=== PATIENT | female | born 1935 | race Caucasian/White ===

== ENCOUNTER → 2021-02-01 17:15 | Outpatient (BNVA) | payer MEDICARE, MEDICAID, SELFPAY | PROVIDERS: Family Provider Internal Medicine; Visit Provider Family Medicine | DX: E78.2 Mixed hyperlipidemia (principal); F32.1 Major depressive disorder, single episode, moderate; I10 Essential (primary) hypertension | CPT/HCPCS: 80053; 80061; 84443; 85025 ==

== ENCOUNTER → 2021-09-06 17:09 | Outpatient (BNVA) | payer MEDICARE, MEDICAID, SELFPAY | PROVIDERS: Family Provider Internal Medicine; Visit Provider Family Medicine | DX: N39.0 Urinary tract infection, site not specified (principal); I10 Essential (primary) hypertension; F32.1 Major depressive disorder, single episode, moderate; E78.2 Mixed hyperlipidemia | CPT/HCPCS: 80053; 80061; 81003; 83735; 84443; 85025 ==

== ENCOUNTER → 2021-09-29 10:30 | Outpatient (BNVA) | payer MEDICARE, MEDICAID, SELFPAY | PROVIDERS: Family Provider Internal Medicine; Visit Provider Nurse Practitioner Family | DX: N39.0 Urinary tract infection, site not specified (principal) | CPT/HCPCS: 81003; 87077; 87086; 87184 ==

== ENCOUNTER → 2021-11-22 14:17 | Outpatient (BNVA) | payer MEDICARE, MEDICAID, SELFPAY | PROVIDERS: Family Provider Internal Medicine; PCP Family Medicine; Visit Provider Family Medicine | DX: N39.0 Urinary tract infection, site not specified (principal); I10 Essential (primary) hypertension; E78.2 Mixed hyperlipidemia; F32.1 Major depressive disorder, single episode, moderate | CPT/HCPCS: 80053; 80061; 81003; 85025; 87086; 87184 ==

== ENCOUNTER → 2022-03-22 12:51 | Outpatient (BNVA) | payer MEDICARE, MEDICAID, SELFPAY | PROVIDERS: Family Provider Internal Medicine; PCP Family Medicine; Visit Provider Family Medicine | DX: I10 Essential (primary) hypertension (principal); E78.2 Mixed hyperlipidemia; F32.1 Major depressive disorder, single episode, moderate; N39.0 Urinary tract infection, site not specified; E78.5 Hyperlipidemia, unspecified | CPT/HCPCS: 80053; 80061; 81003; 85025; 87086 ==

== ENCOUNTER → 2022-07-14 17:32 | Outpatient (BNVA) | payer MEDICARE, MEDICAID, SELFPAY | PROVIDERS: Family Provider Internal Medicine; PCP Family Medicine; Visit Provider Family Medicine | DX: I10 Essential (primary) hypertension (principal); E78.2 Mixed hyperlipidemia; F32.1 Major depressive disorder, single episode, moderate; B37.9 Candidiasis, unspecified; E78.5 Hyperlipidemia, unspecified | CPT/HCPCS: 80053; 80061; 84443; 85025 ==

== ENCOUNTER → 2022-08-18 15:52 | Outpatient (BNVA) | payer MEDICARE, MEDICAID, SELFPAY | PROVIDERS: Family Provider Internal Medicine; PCP Family Medicine; Visit Provider Family Medicine | DX: N39.0 Urinary tract infection, site not specified (principal) | CPT/HCPCS: 81000 ==

== ENCOUNTER → 2023-01-20 12:01 | Outpatient (BNVA) | payer MEDICARE, MEDICAID, SELFPAY | PROVIDERS: Family Provider Internal Medicine; PCP Family Medicine; Visit Provider Family Medicine | DX: F32.1 Major depressive disorder, single episode, moderate (principal); G47.09 Other insomnia; E78.2 Mixed hyperlipidemia; I10 Essential (primary) hypertension | CPT/HCPCS: 80053; 80061; 84443; 85025 ==

== ENCOUNTER → 2023-05-31 11:00 | Outpatient (BNVA) | payer MEDICARE, MEDICAID, SELFPAY | PROVIDERS: Family Provider Internal Medicine; PCP Family Medicine; Visit Provider Family Medicine | DX: E78.5 Hyperlipidemia, unspecified (principal); I10 Essential (primary) hypertension; G47.00 Insomnia, unspecified; F32.9 Major depressive disorder, single episode, unspecified | CPT/HCPCS: 80053; 80061; 84443; 85025 ==

== ENCOUNTER 2023-08-16 06:00 | Outpatient (RCR) | payer MEDICARE, MEDICAID, SELFPAY | END 2023-09-12 23:59 | disposition home or self-care (01) | LOC: TPT 06:00 | PROVIDERS: PCP Family Medicine; Visit Provider Family Medicine | DX: M54.30 Sciatica, unspecified side (principal) | CPT/HCPCS: 97110; 97162 ==

== ENCOUNTER → 2023-08-23 14:30 | Outpatient (BNVA) | payer MEDICARE, MEDICAID, SELFPAY | PROVIDERS: PCP Family Medicine; Visit Provider Family Medicine | DX: N39.0 Urinary tract infection, site not specified (principal) | CPT/HCPCS: 81000 ==

== ENCOUNTER 2023-09-13 06:00 | Outpatient (RCR) | payer MEDICARE, MEDICAID, SELFPAY | END 2023-10-12 23:59 | disposition home or self-care (01) | LOC: TPT 06:00 | PROVIDERS: PCP Family Medicine; Visit Provider Family Medicine | DX: M54.30 Sciatica, unspecified side (principal) | CPT/HCPCS: 97110 ==

== ENCOUNTER 2024-01-09 10:45 | Emergency (ER) | payer MEDICARE, MEDICAID, SELFPAY ==
[2024-01-09 10:44] VITALS: BMI 27.2
[2024-01-09 10:48] VITALS: BP 116/68; PULSE 83; RESP 16; TEMP 37.1; O2SAT 92
--- NOTE | 2024-01-09 11:01 | ED_ITS ---
HPI - Nausea/Vomiting/Diarrhea 2 General: Chief complaint: Nausea/Vomiting/Diarrhea Stated complaint: N/V Source: patient and EMS Mode of arrival: EMS Limitations: no limitations History of Present Illness: Patient is an 88-year-old female presents to ED today with complaint of nausea and vomiting over the past 2 days. Patient states she is vomiting multiple times daily. Symptoms began after starting doxepin for sleep. She states she is not eating or drinking x 2 days. Patient states she has never had any abdominal pain or cramping. She is reporting normal bowel movements although states she has not ate much so has not stooled as often. She is not running fevers. Patient states she was given Zofran in route via EMS and upon arrival states all of her nausea has subsided. Denies sick contacts. Has noticed some shortness of breath when she gets up and walks around. MD elicited complaint: nausea and vomiting Onset (ago): day(s) Associated nausea: Yes Associated abdominal pain: No Location of pain: None Severity: moderate Exacerbating factors: eating Relieving factors: none Associated symtoms: Reports no associated symptoms and nausea; Denies chest pain, dizziness, dysuria, fatigue, headache(s) or malaise Review of Systems 2 Const: Denies: fever(s), chills, body aches, fatigue or malaise Card: Denies: chest pain Resp: Denies: dyspnea GI: Reports: nausea and vomiting; Denies: abdominal pain, hematemesis, diarrhea, constipation, GI cramping, change in bowel habits, hematochezia or melena : Denies: flank pain, difficulty voiding, dysuria, urinary frequency, urinary urgency or urinary hesitancy Musc: Denies: neck pain, back pain, extremity pain, extremity swelling, joint pain or joint swelling Skin/Breast: Denies: rash Neuro: Denies: headache(s), numbness in extremities, weakness in extremities, sensory changes or dizziness PFSH ED 2 PFSH: Medical History Hypertension Hyperlipidemia Depression Surgical History History of partial hysterectomy Social History Smoking and tobacco/nicotine status: never used tobacco/nicotine Alcohol intake: never Substance/Drug Use: never Household members: spouse Marital status: Current occupational status: retired Physical Exam 2 Const: COMMON NORMALS: no acute distress, average body habitus, patient oriented x3, no limitations, healthy appearing, alert and well nourished Eye: COMMON NORMALS: no scleral icterus Resp: COMMON NORMALS: normal respiratory effort and clear to auscultation bilaterally AUSCULTATION: clear to auscultation bilaterally Cardio: COMMON NORMALS: regular rate and regular rhythm RATE: regular rate RHYTHM: regular rhythm GI: COMMON NORMALS: Normal to inspection, nondistended, normoactive bowel sounds present, Soft to palpation, non-tender, No hepatosplenomegaly present and no masses PALPATION: Yes Soft to palpation and Yes No hepatosplenomegaly present : COMMON NORMALS: Yes no CVA tenderness BLADDER/KIDNEY EXAM: Yes no CVA tenderness Back/Pelvis: COMMON NORMALS: no CVA tenderness and thoracic and lumbar spine normal to inspection Extremity: GENERAL: Yes normal exam except as noted Neuro: [place] COMA SCALE: document GCS findings [place] coma scale eye opening: Spontaneous [place] coma scale verbal response: Orientated [place] coma scale motor response: Obey commands [place] coma scale total score: 15 COMMON NORMALS: patient oriented x3 SENSORIUM/ORIENTATION: Yes alert Skin: COMMON NORMALS: no rashes or lesions noted GENERAL SKIN EXAM: no rashes or lesions noted Course 2 Vital Signs: Vital signs: Vital Signs Temperature 98.8 F 01/09/24 10:48 Pulse Rate 86 01/09/24 13:00 Respiratory Rate 16 01/09/24 10:48 Blood Pressure 93/53 01/09/24 13:00 Pulse Oximetry 94 01/09/24 13:00 Oxygen Delivery Me thod Room Air 01/09/24 10:48 MDM - Nausea/Vomiting/Diarrhea Medical Decision Making Patient is an 88-year-old female here for nausea and vomiting over the past 2 days. She states symptoms started after starting a new sleeping medication, doxepin. This does have a common reaction of nausea and vomiting. Recommend she discontinue this to see if nausea or vomiting improves. She did have a complaint of feeling short of breath when she gets up and walks around. CXR showing a left lower lobe infiltrate that could represent pneumonia or chronic change. No comparison studies were available. Will go ahead and treat with Levaquin. Remainder of her blood work is nonactionable. UA somewhat contaminated. She has no UTI-like symptoms. Return ED precautions given. Differential Diagnosis Likely food poisoning, gastroenteritis, drug-induced nausea and vomiting and dehydration Medical Records I reviewed the patient's medical records. Lab Data I reviewed the patient's lab results. 01/09/24 11:26 01/09/24 11:26 Laboratory Results WBC 12.56 10^3/uL (3.29-11.43) H 01/09/24 11:26 RBC 5.12 10^6/uL (3.85-5.65) 01/09/24 11:26 Hgb 13.80 g/dL (11.27-16.99) 01/09/24 11: Hct 44.6 % (36-47) 01/09/24 11: MCV 87.1 fl (85-98) 01/09/24 11: MCH 27.0 pg (27-33) 01/09/24 11: MCHC 30.9 g/dL (30-55) 01/09/24 11: RDW 13.8 % (12.1-15.1) 01/09/24 11: Plt Count 218 10^3/cmm (157-399) 01/09/24 11: MPV 9.7 fL (7.4-10.4) 01/09/24 11: Neut % (Auto) 95.2 % 01/09/24 11: Lymph % (Auto) 1.3 % 01/09/24 11: [place] % (Auto) 2.2 % 01/09/24 11: Eos % (Auto) 0.6 % 01/09/24 11: Baso % (Auto) 0.2 % 01/09/24 11: Neut # (Auto) 11.96 10^3/uL (1.8-7.7) H 01/09/24 11: Lymph # (Auto) 0.2 10^3/uL (0.8-4.8) L 01/09/24 11: [place] # (Auto) 0.3 10^3/uL (0.2-0.9) 01/09/24 11:26 Eos # (Auto) 0.1 10^3/uL (0.0-0.8) 01/09/24 11:26 Baso # (Auto) 0.0 10^3/uL (0.0-0.1) 01/09/24 11:26 Nucleated RBC % (auto) 0 % 01/09/24 11:26 Nucleated RBCs # 0.0 /100WBC 01/09/24 11:26 Sodium 142 mmol/L (136-145) 01/09/24 11:26 Potassium 4.2 mmol/L (3.5-5.1) 01/09/24 11:26 Chloride 101 mmol/L (98-107) 01/09/24 11:26 Carbon Dioxide 30 mmol/L (22-29) H 01/09/24 11:26 Anion Gap 15.2 (5-19) 01/09/24 11:26 BUN 21 mg/dL (8-23) 01/09/24 11:26 Creatinine 0.7 mg/dL (0.5-0.9) 01/09/24 11:26 GFR Calculation Not Reportable 01/09/24 11:26 Glucose 127 mg/dL (65-115) H 01/09/24 11:26 Calculated Osmolality 299 mOsm/kg (285-295) H 01/09/24 11:26 Calcium 8.8 mg/dL (8.5-10.5) 01/09/24 11:26 Total Bilirubin 1.3 mg/dL (0.15-1.2) H 01/09/24 11:26 AST 35 U/L (0-32) H 01/09/24 11:26 ALT 32 U/L (0-33) 01/09/24 11:26 Alkaline Phosphatase 54 U/L (35-105) 01/09/24 11:26 Total Protein 7.1 g/dL (6.6-8.7) 01/09/24 11:26 Albumin 4.3 g/dL (3.5-5.2) 01/09/24 11:26 Globulin 2.8 g/dL (1.3-4.6) 01/09/24 11:26 Lipase 17 U/L (13-60) 01/09/24 11:26 Urine Color Yellow (Yellow) 01/09/24 12:13 Urine Appearance Clear (CLEAR) 01/09/24 12:13 Urine pH 5 (5-7) 01/09/24 12:13 Ur Specific [place] 1.025 (1.005-1.030) 01/09/24 12:13 Urine Protein Neg (Negative) 01/09/24 12:13 Urine Glucose (UA) Norm (Normal) 01/09/24 12:13 Urine Ketones Negative (Negative) 01/09/24 12:13 Urine Blood Neg (Negative) 01/09/24 12:13 Urine Nitrate Negative (Negative) 01/09/24 12:13 Urine Bilirubin Neg (Negative) 01/09/24 12:13 Urine Urobilinogen 1 mg/dL (Negative) H 01/09/24 12:13 Ur Leukocyte Esterase Trace (Negative) H 01/09/24 12:13 Urine RBC 0-4 /hpf (0-2) H 01/09/24 12:13 Urine WBC 5-10 /hpf (0-5) H 01/09/24 12:13 Ur Squamous Epith Cells 5-10 /hpf (0-5) H 01/09/24 12:13 Amorphous Sediment Trace /hpf 01/09/24 12:13 Urine Bacteria Trace /hpf (NONE) 01/09/24 12:13 Fine Granular Casts 0-4 /lpf H 01/09/24 12:13 Urine Mucus 4+ /hpf 01/09/24 12:13 All radiology interpretation(s) finalized by discharge Discharge Plan Discharge Patient Disposition: Home Clinical Impression: LLL pneumonia Qualifiers: Pneumonia type: due to unspecified organism Qualified Code(s): J18.9 - Pneumonia, unspecified organism Nausea and vomiting Qualifiers: Vomiting type: unspecified Qualified Code(s): R11.2 - Nausea with vomiting, unspecified Condition: Stable Prescriptions: New ondansetron 4 mg tablet,disintegrating 4 mg PO Q8H PRN (Reason: nausea and vomiting) Qty: 14 0RF levofloxacin 500 mg tablet 500 mg PO DAILY 7 Days Qty: 7 0RF No Action sertraline [Zoloft] 100 mg tablet 100 mg PO DAILY Qty: 90 3RF lisinopril-hydrochlorothiazide 10-12.5 mg tablet 1 tab PO DAILY Qty: 30 3RF rosuvastatin 10 mg tablet 10 mg PO DAILY albuterol sulfate 90 mcg/actuation HFA aerosol inhaler 2 puff INHALATION Q4H PRN (Reason: Shortness Of Breath Or Wheezing) Discharge Orders: Discharge ED (Routine); Ordered 01/09/24 Ordered By: Myra Morrison Referrals: Sheri Grady MD [Primary Care Provider] - Patient Instructions: Community Acquired Pneumonia (DC) Coding Level of Care Code ED Glass Installer for Laura Watts
--- NOTE | 2024-01-09 11:35 | XR_ITS ---
WS: [id number] Exam: XR chest 1V portable [id number] Date/Time of Exam: 01/09/2024 11:37 AM Reason For Exam: n/v Exam: XR chest 1V portable [id number] Date/Time of Exam: 01/09/2024 11:37 AM Reason For Exam: n/v No priors. There is mild infiltrate in the LEFT lower lobe that may represent chronic change or active pneumonia . The RIGHT lung is clear. No pneumothorax. Heart size is within normal limits. The mediastinum is no rmal in contour. Bony structures are intact. IMPRESSION: 1. Mild infiltrate in the LEFT lower lobe that may represent pneumonia or chronic change. No comparis on studies. 2. No other significant finding.
[2024-01-09 11:37] LABS: Basophils % 0.2 %; Eosinophils # 0.1 10^3/uL (0.0-0.8); Eosinophils % 0.6 %; Hematocrit 44.6 % (36-47); Lymphocytes # 0.2 10^3/uL (0.8-4.8); Lymphocytes % 1.3 %; Mean Corpuscular HGB Conc 30.9 g/dL (30-55); Mean Corpuscular Volume 87.1 fl (85-98); Mean Platelet Volume 9.7 fL (7.4-10.4); Monocytes # 0.3 10^3/uL (0.2-0.9); Monocytes % 2.2 %; Neutrophils # 11.96 10^3/uL (1.8-7.7); Neutrophils % 95.2 %; Nucleated Red Blood Cells % 0 %; Platelet Count 218 10^3/cmm (157-399); Red Blood Count 5.12 10^6/uL (3.85-5.65); Red Cell Distribution Width 13.8 % (12.1-15.1); White Blood Count 12.56 10^3/uL (3.29-11.43)
[2024-01-09 11:52] LABS: Alanine Aminotransferase 32 U/L (0-33); Albumin Level 4.3 g/dL (3.5-5.2); Alkaline Phosphatase 54 U/L (35-105); Anion Gap 15.2 (5-19); Aspartate Amino Transferase 35 U/L (0-32); Blood Urea Nitrogen 21 mg/dL (8-23); Calcium 8.8 mg/dL (8.5-10.5); Carbon Dioxide 30 mmol/L (22-29); Chloride 101 mmol/L (98-107); Creatinine Clr Calc Pharmacy 55.3874; Globulin 2.8 g/dL (1.3-4.6); Glucose 127 mg/dL (65-115); Lipase 17 U/L (13-60); Osmolality Calculated 299 mOsm/kg (285-295); Potassium 4.2 mmol/L (3.5-5.1); Sodium 142 mmol/L (136-145); Total Bilirubin 1.3 mg/dL (0.15-1.2); Total Protein 7.1 g/dL (6.6-8.7)
[2024-01-09 12:39] LABS: Add Urine Microscopic? YES; Bilirubin Urine Neg (Negative); Blood Urine Neg (Negative); Glucose Urine UA Norm (Normal); Ketones Urine Negative (Negative); Leukocyte Esterase Urine Trace (Negative); Nitrate Urine Negative (Negative); Protein Urine Neg (Negative); Specific Gravity, Urine 1.025 (1.005-1.030); Urine Appearance Clear (CLEAR); Urine Color Yellow (Yellow); Urobilinogen Urine 1 mg/dL (Negative); pH Urine 5 (5-7)
[2024-01-09 12:50] LABS: Add Urine Culture? No; Amorphous Sediment Urine TRACE /hpf; Bacteria Urine TRACE /hpf; Fine Granular Casts Urine 0-4 /lpf; Mucus Urine 4+ /hpf; RBC Urine 0-4 /hpf (0-2)
[2024-01-09 13:00] VITALS: BP 93/53; PULSE 86; O2SAT 94
[2024-01-09 13:45] VITALS: BP 116/49; PULSE 84; O2SAT 92
--- NOTE | 2024-01-10 11:57 | DCPLANNER ---
Message sent to [facility] to establish a PCP.
== END 2024-01-09 13:46 | disposition home or self-care (01) ==
PROVIDERS: Emergency Provider Physician Assistant; PCP Family Medicine
DX: J18.9 Pneumonia, unspecified organism (principal); R11.2 Nausea with vomiting, unspecified; I10 Essential (primary) hypertension; E78.5 Hyperlipidemia, unspecified
CPT/HCPCS: 36415; 71045; 80053; 81001; 83690; 85025; 99284

== ENCOUNTER → 2025-08-28 13:12 | Outpatient (BNVA) | payer OTHER, MEDICAID, SELFPAY | PROVIDERS: PCP Family Medicine; Referring Provider Nurse Practitioner Family; Visit Provider Internal Medicine Cardiovascular Disease | DX: Z01.810 Encounter for preprocedural cardiovascular examination (principal); H26.9 Unspecified cataract; E78.5 Hyperlipidemia, unspecified; I10 Essential (primary) hypertension; R94.31 Abnormal electrocardiogram [ECG] [EKG]; R06.09 Other forms of dyspnea; R07.9 Chest pain, unspecified; R06.02 Shortness of breath | CPT/HCPCS: 36415; 83880; 93005; 99204 ==

== ENCOUNTER 2025-09-19 13:47 | Outpatient (CLI) | payer OTHER, MEDICAID, SELFPAY ==
--- NOTE | 2025-09-19 14:15 | USCV_ITS ---
Diana Webber Age: 89 Gender: F : 1935 Exam Date: 09/19/2025 14:10 Ordering Phys: Elías Brown MD ([email or web address]) Technologist: Sarkis Luz [place] [facility] [place] sob BP: 124 / 70 HR: 82 Rhythm: Sinus Technical Quality: Adequate MEASUREMENTS (Male / Female) Normal Values 2D ECHO LVOT Diameter 2.1 cm LV Ejection Fraction MOD 4C 61.1 % LV Ejection Fraction MOD 2C 64.8 % LV Ejection Fraction 2C AL 66.5 % LA Diameter 3.9 cm RA Systolic Volume 4C AL 30.6 ml RA Systolic Volume 4C MOD 30.0 ml LA Sys Volume AL 33.6 cm cubed LA Sys Volume Index AL 16.5 cm cubed/m squared Aorta at Sinotubular Diameter 2.3 cm IVC Diameter 1.4 cm M-MODE LA Ao Ratio MM 1.0 AV Cusp Separation MM 1.4 cm DOPPLER AV Peak Velocity 173.0 cm/s LVOT Peak Velocity 85.0 cm/s AV Area Cont Eq vti 2.1 cm squared AV Area Cont Eq pk 1.7 cm squared MV Peak Velocity 114.0 cm/s MV Area PHT 2.9 cm squared Mitral E to A Ratio 0.7 TR Peak Velocity 190.0 cm/s TR Peak Gradient 14.4 mmHg TR Mean Velocity 139.0 cm/s TR Mean Gradient 8.7 mmHg TR Velocity Time Integral 46.5 cm PV Peak Velocity 88.3 cm/s RV Ejection Time 0.3 s FINDINGS Left Ventricle Normal left ventricular size, systolic function and wall thickness, with no regional wall motion abnormalities. Left ventricular ejection fraction is estimated at 60 %. Grade I/IV diastolic dysfunction (abnormal relaxation filling pattern), normal to mildly elevated filling pressures. Right Ventricle Normal right ventricular size and systolic function. Right Atrium Normal right atrial size. Left Atrium Normal left atrial size. IA Septum Normal appearance of the interatrial septum. Mitral Valve Normal mitral valve structure. No mitral valve stenosis or regurgitation. Aortic Valve Moderate aortic valve calcification. Mild aortic valve stenosis, mean gradient 6.6 mmHg, BEATRICE 2.1 cm squared. Trace aortic valve regurgitation. Tricuspid Valve Moderate tricuspid valve regurgitation. Pulmonic Valve Normal pulmonic valve structure. No pulmonic valve stenosis or regurgitation. Pericardium No pericardial effusion. Aorta Normal diameter of the aortic root and ascending thoracic aorta. IVC Normal IVC diameter. CONCLUSIONS Normal left ventricular size, systolic function and wall thickness, with no regional wall motion abnormalities. Left ventricular ejection fraction is estimated at 60 %. Grade I/IV diastolic dysfunction (abnormal relaxation filling pattern), normal to mildly elevated filling pressures. Moderate aortic valve calcification. Mild aortic valve stenosis, mean gradient 6.6 mmHg, BEATRICE 2.1 cm squared. Trace aortic valve regurgitation. Moderate tricuspid valve regurgitation. There is no pericardial effusion. Right atrial pressure is around 5 mm of mercury. . Maycol Lima MD (Electronically Signed) Final Date: 19 September 2025 20:01 S
== END 2025-09-19 13:48 | disposition home or self-care (01) ==
PROVIDERS: PCP Nurse Practitioner Family; Visit Provider Internal Medicine Cardiovascular Disease
DX: R06.02 Shortness of breath (principal); R93.1 Abnormal findings on diagnostic imaging of heart and coronary circulation; I35.8 Other nonrheumatic aortic valve disorders; I35.0 Nonrheumatic aortic (valve) stenosis; I07.1 Rheumatic tricuspid insufficiency
CPT/HCPCS: 93306